=== PATIENT | male | born 1985 | race Caucasian/White ===

== ENCOUNTER 2018-02-03 11:01 | Emergency (ER) | payer SELFPAY ==
[~2018-02-03] VITALS: Ht 175.3 cm; Wt 99.8 kg
[2018-02-03] MEDS ORDERED: HYDROMORPHONE 1MG/1ML INJ IV STA (11:04)
[2018-02-03] MEDS ORDERED: SODIUM CHLORIDE 0.9% 1000ML 1,000 ML IV STA (11:04)
[2018-02-03] MEDS ORDERED: KETOROLAC TROMETHAMINE 30 MG/ML VIAL IV STA (11:04)
[2018-02-03] MEDS ORDERED: METOCLOPRAMIDE HCL 10 MG/2ML VIAL IV ONE (11:15)
[2018-02-03] MEDS ORDERED: HYDROMORPHONE 2MG/ML INJ IV ONE (11:30)
[2018-02-03 12:36] LABS: BASOPHILS # (AUTO) 0.1 (0.0-0.1); BASOPHILS % 0.7 % (0.0-1.0); EOSINOPHILS # (AUTO) 0.2 (0.0-0.4); EOSINOPHILS % 1.7 % (0.0-6.0); HEMATOCRIT 40.9 % (38.2-49.6); LYMPHOCYTES # (AUTO) 1.7 (1.0-3.2); LYMPHOCYTES % 19.8 % (18.0-39.1); MEAN CORPUSCULAR HEMOGLOBIN 29.2 pg (28-32); MEAN CORPUSCULAR HGB CONC 34.2 g/dL (31-35); MEAN CORPUSCULAR VOLUME 85.2 fL (81-99); MONOCYTES # (AUTO) 0.6 (0.2-0.8); MONOCYTES % 6.4 % (4.4-11.3); NEUTROPHILS # (AUTO) 6.1 (2.1-6.9); NEUTROPHILS % 71.2 % (38.7-80.0); PLATELET COUNT 417 x10e3/uL (140-360); RED CELL DISTRIBUTION WIDTH 12.7 % (11.7-14.4)
[2018-02-03 12:42] LABS: KETONES,URINE NEGATIVE (NEGATIVE); LEUKOCYTE ESTERASE ,URINE NEGATIVE (NEGATIVE); NITRITE,URINE NEGATIVE (NEGATIVE); PROTEIN,URINE DIPSTICK 1+ (NEGATIVE)
[2018-02-03 12:43] LABS: BILIRUBIN,URINE NEGATIVE (NEGATIVE); URINE UROBILINOGEN 0.2 mg/dL (0.2 - 1)
[2018-02-03 12:51] LABS: ALANINE AMINOTRANSFERASE 67 IU/L (0-55); ALBUMIN 4.4 g/dL (3.5-5.0); ALBUMIN/GLOBULIN RATIO 1.4 (0.8-2.0); ALKALINE PHOSPHATASE 116 IU/L (40-150); ANION GAP 11.2 mmol/L (8-16); BLOOD UREA NITROGEN 12 mg/dL (7-26); BUN/CREATININE RATIO 12 (6-25); CALCIUM 9.3 mg/dL (8.4-10.2); CARBON DIOXIDE 26 mmol/L (22-29); CHLORIDE 104 mmol/L (98-107); CREATININE, SERUM 1.02 mg/dL (0.72-1.25); EST GLOMERULAR FILTRATION RATE > 60 ML/MIN (60-); GLUCOSE 95 mg/dL (74-118); POTASSIUM 4.2 mmol/L (3.5-5.1); SODIUM 137 mmol/L (136-145)
--- NOTE | 2018-02-03 12:51 | Diagnostic Imaging Report ---
EXAM: CT Abdomen and Pelvis WITHOUT contrast INDICATION: \S\STONE PROTOCOL \S\[id number] \S\[id number] \S\Y COMPARISON: None. TECHNIQUE: Abdomen and pelvis were scanned utilizing a multidetector helical scanner from the lung base to the pubic symphysis without administration of IV contrast. Absence of intravenous contrast decreases sensitivity for detection of focal lesions and vascular pathology. Coronal and sagittal reformations were obtained. Routine protocol was performed. IV CONTRAST: None ORAL CONTRAST: Water COMPLICATIONS: None RADIATION DOSE: Total DLP: 799.5 mGy*cm Estimated effective dose: (DLP x 0.015 x size factor) mSv CTDIvol has been reviewed. It is below the limits set by the Radiation Protocol Committee (RPC). FINDINGS: LINES and TUBES: None. LOWER THORAX: Unremarkable HEPATOBILIARY: Low attenuating right hepatic 0.6 cm lesion is too small to characterize but likely a cyst. No biliary ductal dilation. GALLBLADDER: No radio-opaque stones or sludge. No wall thickening. SPLEEN: No splenomegaly. PANCREAS: No focal masses or ductal dilatation. ADRENALS: No adrenal nodules KIDNEYS/URETERS: Mild left hydronephrosis related to a 1.1 x 0.7 x 0.8 cm stone at the ureterovesicular junction. No cystic or solid mass lesions. Multiple nonobstructing stones measure up to 3 mm stones in the right kidney and 5 mm in the left kidney. GI TRACT: No abnormal distention, wall thickening, or evidence of bowel obstruction. Submucosal fat stomach, duodenum, and right colon. Appendix is normal. PELVIC ORGANS/BLADDER: Unremarkable. LYMPH NODES: No lymphadenopathy. VESSELS: Unremarkable. PERITONEUM / RETROPERITONEUM: No free air or fluid. A 1.5 cm partially calcified structure in the pelvis likely represents a torsed epiploic appendage. 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 SOFT TISSUES: Small fat-containing indirect right inguinal hernia. IMPRESSION: Left ureteropelvic junction 1.1 x 0.7 x 0.8 cm stone results in mild left hydronephrosis. Signed by: DR. Laron Penny MD on 02/03/2018 12:47 PM
[2018-02-03 12:54] LABS: CLARITY,URINE HAZY (CLEAR); COLOR,URINE YELLOW (YELLOW); EPITHELIAL CELLS,URINE FEW /LPF; MUCUS,URINE MODERATE (RARE); RBC,URINE >50 /HPF (0-5); WBC,URINE (MAN) 0-5 /HPF (0-5)
== END 2018-02-03 16:55 | disposition short-term general hospital (02) ==
LOC: ER 11:01
DX: N13.2 Hydronephrosis with renal and ureteral calculous obstruction (principal)
CPT/HCPCS: 99284; J1170; J1885; J2765; J7030

== ENCOUNTER 2019-03-30 05:27 | Emergency (ER) | payer SELFPAY ==
[~2019-03-30] VITALS: Ht 175.3 cm; Wt 99.8 kg
--- OUTSIDE RECORDS SUMMARY | 2019-03-30 05:30 | XMS REPORT | Clinical Summary ---
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 Active hyoscyamine (LEVSIN/SL) Place 1 60 tablet 0 0.125 mg sublingual tablet under 8 tabletIndications: tongue every Retained ureteral stent 4 hours as needed (bladder spasms). Active ibuprofen (MOTRIN) 400 mg Take 1 tablet 40 tablet 0 tabletIndications: Kidney by mouth 8 stone every 6 hours as needed for Pain. Active traMADol (ULTRAM) 50 mg 1 tab daily 30 tablet 0 tabletIndications: Renal prn Pain. 9 calculi Active hyoscyamine (LEVSIN/SL) Place 1 50 tablet 0 0.125 mg sublingual tablet under 9 tabletIndications: tongue every Retained ureteral stent 4 hours as needed for Cramping. 05/16/2018 Discontinued Atomoxetine (STRATTERA) Take 2 180 capsule 0 10 mg capsuleIndications: capsules by 3 ADHD (attention deficit mouth daily. hyperactivity disorder) 05/16/2018 Discontinued cefpodoxime (VANTIN) 200 Take 1 tablet 20 tablet 0 201 mg tabletIndications: by mouth 2 8 Complicated UTI (urinary times daily tract infection) for 10 days. 05/16/2018 Discontinued ibuprofen (MOTRIN) 800 mg Take 1 tablet 20 tablet 0 tabletIndications: Left by mouth 8 flank pain, Complicated every 6 hours UTI (urinary tract as needed for infection) Pain. 05/16/2018 Discontinued traMADol (ULTRAM) 50 mg Take 1 tablet 20 tablet 0 tabletIndications: Left by mouth 8 flank pain, Complicated every 6 hours UTI (urinary tract as needed for infection) Pain. 05/27/2018 Discontinued ibuprofen (MOTRIN) 800 mg Take 1 tablet 60 tablet 0 tabletIndications: Left by mouth 8 flank pain, Complicated every 6 hours UTI (urinary tract as needed for infection) Pain. 06/01/2018 cefpodoxime (VANTIN) 200 Take 1 tablet 20 tablet 0 mg tabletIndications: by mouth 2 8 Complicated UTI (urinary times daily tract infection) for 10 days. 09/11/2018 Discontinued traMADol (ULTRAM) 50 mg Take 1 tablet 60 tablet 0 tabletIndications: Flank by mouth 8 pain every 6 hours as needed for Pain. 07/13/2018 hyoscyamine (LEVSIN/SL) Place 1 30 tablet 0 0.125 mg sublingual tablet under 8 tabletIndications: tongue every Bladder spasm 4 hours as needed for up to 10 days for Cramping. 08/17/2018 amoxicillin (AMOXIL) 250 Take 1 15 capsule 0 mg capsuleIndications: capsule by 8 Complicated UTI (urinary mouth 3 times tract infection) daily for 5 days. 08/21/2018 Discontinued hyoscyamine (LEVSIN/SL) Place 1 30 tablet 0 0.125 mg sublingual tablet under 8 tabletIndications: tongue every Retained ureteral stent 4 hours as needed for up to 10 days for Cramping. 09/12/2018 Discontinued sulfamethoxazole-trimetho Take 1 tablet 20 tablet 0 prim (BACTRIM DS) 800-160 by mouth 2 9 mg per tabletIndications: times daily Folliculitis for 10 days. 09/12/2018 Discontinued traMADol (ULTRAM) 50 mg 1 tab daily 30 tablet 0 tabletIndications: Renal prn Pain. 9 calculi 09/25/2018 sulfamethoxazole-trimetho Take 1 tablet 20 tablet 0 prim (BACTRIM DS) 800-160 by mouth 2 9 mg per tabletIndications: times daily Folliculitis for 10 days. Status Hospital, Clinic, or Ordered Dose Route Frequency Start End Date Other Facility Date Administered Medication Ended ciprofloxacin HCl (CIPRO) 500 mg OR ONCE 10/09/19 tablet 500 mg 19 9 Ended povidone-iodine 1 Application TP ONCE 10/09/19 (BETADINE) 10 % topical 19 9 applicator 1 Application Ended lidocaine (GLYDO) 2 % 11 mL UR ONCE 10/09/19 jelly 11 mL 19 9 Active Problems Problem Noted Date Kidney stone 06/23/2018 Overview: Added automatically from request for surgery [id number] Left flank pain 05/08/2018 Complicated UTI (urinary tract infection) 05/08/2018 Retained ureteral stent 05/08/2018 ADHD (attention deficit hyperactivity disorder) 06/25/2012 Chest pain, unspecified 05/08/2012 Special screening for other specified conditions(V82.89) 05/08/2012 Hematuria Encounters Care Team Description Date Type Specialty Rachana Peterson MD Nephrolithiasis 11/03/2018 Hospital Lab Encounter Rachana Peterson MD 11/03/2018 Hospital Lab Encounter 11/03/2018 Travel Monique Goodrich LVN Follow-up (CYSTO WITH STENT REMOVAL) 10/13/2018 Telephone Urology Rachana Peterson MD Nephrolithiasis; Retained ureteral stent 10/09/2018 Hospital Radiology Encounter Chintan Maya MD McCarty, Melina J, MD Nephrolithiasis (Primary Dx); Retained ureteral stent 10/09/2018 Office Visit Urology Rachana Peterson MD Renal calculi (Primary Dx); Folliculitis; Encounter for vaccination; Diabetes mellitus screening 09/11/2018 Office Visit Family Practice 09/11/2018 Travel Rachana Peterson MD Flank pain 08/31/2018 Refill Family Practice Chintan Maya MD 08/21/2018 Hospital Radiology Encounter Chintan Maya MD Cystoscopy, URETEROSCOPY. Laser lithotripsy, Stent REMOVAL AND EXCHANGE 08/21/2018 Surgery General Surgery Tata Pettit NP 08/21/2018 Anesthesia General Surgery Event Chintan Maya MD Kidney stone (Primary Dx); Retained ureteral stent 08/21/2018 Hospital General Surgery Encounter Bryce Hawkins ResidentMD Results 08/20/2018 Telephone Urology Winnie Campbell, Tata Gandara NP 08/15/2018 Hospital Anesthesiology Encounter Bryce Hawkins ResidentMD Retained ureteral stent (Primary Dx) 08/15/2018 Orders Only Urology 08/15/2018 Travel Rachana Peterson MD Flank pain 08/11/2018 Refill Family Practice Bryce Hawkins ResidentMD Results 08/10/2018 Telephone Urology Rachana Peterson MD Complicated UTI (urinary tract infection); Retained ureteral stent 08/07/2018 Hospital Lab Encounter Tesha Rayo PA McCarty, Melina J, MD Flank pain (Primary Dx); Complicated UTI (urinary tract infection); Retained ureteral stent; Bladder spasm 06/23/2018 Office Visit Urology Left flank pain; Retained ureteral stent; Hematuria, unspecified type 06/06/2018 Emergency Emergency Medicine Rachana Peterson MD Tobacco abuse (Primary Dx); Left flank pain; Complicated UTI (urinary tract infection); Dietary counseling for Above / Below Normal BMI; Exercise counseling for Above Normal BMI Only! 05/16/2018 Office Visit Family Practice Brice Kingsley MD Complicated UTI (urinary tract infection); Left flank pain 05/14/2018 Refill Eb Hutchinson MD Left flank pain (Primary Dx); Complicated UTI (urinary tract infection); Retained ureteral stent; Kidney stone on left side 05/08/2018 Emergency Emergency Medicine after 03/29/2018 Immunizations Name Administration Dates Next Due Influenza Vaccine 06/24/2012 Influenza, 09/11/2018 Vaccine<FLUCELVAX>(Multi- Dose) Family History Relation Name Status Comments Brother Alive Father Alive Mother Alive Sister Alive Social History Date Tobacco Use Types Packs/Day Years Used Current Every Day Smoker Cigarettes Smokeless Tobacco: Never Used Tobacco Cessation: Ready to Quit: Yes; Counseling Given: Yes Comments: 1 pack every 2 days Drinks/Week oz/Week Comments Alcohol Use socially Yes Food Insecurity Answer Date Recorded Within the past 12 months, you worried that your Never true 09/11/2018 food would run out before you got money to buy more. Within the past 12 months, the food you bought Never true 09/11/2018 just didn't last and you didn't have money to get more. Sex Assigned at Date Recorded Not on file Industry Job Start Date Occupation Not on file Not on file Not on file Travel End Travel History Travel Start No recent travel history available. Last Filed Vital Signs Reading Time Taken Comments Vital Sign 118/65 10/09/2018 10:50 AM [facility]ATHER Blood Pressure 97 10/09/2018 10:50 AM [employer] LEATHER Pulse 36.6 C (97.9 F) 10/09/2018 10:50 AM [facility] LEATHER Temperature 18 10/09/2018 10:50 AM [facility] LEATHER Respiratory Rate 97% 09/11/2018 1:23 PM [facility] LEATHER Oxygen Saturation - - Inhaled Oxygen Concentration 95.3 kg (210 lb) 10/09/2018 10:50 AM [facility]ER LEATHER Weight 175.3 cm (5' 9") 10/09/2018 10:50 AM SPR[facility]ER LEATHER Height 31.01 10/09/2018 10:50 AM SPRAYER LEATHER Body Mass Index Plan of Treatment Not on file Implants Device Identifier Shelf Expiration Date Model / Serial / Lot Implanted Type Area Manufactur 01/26/2021 [id number] / / [id number] [employer] Ureteral Stent Stent Left: Ureter(s) Implanted: Qty: 1 on 08/21/2018 by Bryce Hawkins, [facility]MD [facility] Procedures Comments Procedure Name Priority Date/Time Associated Diagnosis INTACT PARATHYROID Routine 11/03/2018 Nephrolithiasis HORMONE (PTH) 10:55 AM SPR[facility]ER LEATHER URIC ACID Routine 11/03/2018 Nephrolithiasis 10:55 AM [facility]ER LEATHER VIT D, 25-HYDROXY Routine 11/03/2018 Nephrolithiasis 10:55 AM [employer]ER LEATHER BASIC METABOLIC PANEL Routine 11/03/2018 Nephrolithiasis 10:55 AM [employer] LEATHER KIDNEY STONE, UR/SAT Routine 11/03/2018 Nephrolithiasis 10:00 AM [employer]ER LEATHER XRAY ABDOMEN 1 VIEW Routine 10/09/2018 Nephrolithiasis 12:27 PM [employer]ER LEATHER Retained ureteral stent HEMOGLOBIN A1C Routine 2018 Diabetes mellitus 10:02 AM SPRAYER LEATHER screening [id number] Routine 08/21/2018 11:20 AM SPR[facility]ER LEATHER Procedure Note - Diane Bates CRNA - 08/21/2018 11:20 AM SPR[facility]ER LEATHER Intubation Date/Time: 08/21/2018 11:00 AM Urgency: elective Airway not difficult General Informatio n and Staff Patient location during procedure: OR Anesthesio logist: Luci Dahl MD Resident/C RNA: Diane Bates CRNA Performed: resident/C RNA Indicatio ns and Patient Condition Indication s for airway management : anesthesia Preoxygena florentin: yes Patient position: sniffing Mask difficulty assessment : 2 - vent by mask + OA or adjuvant +/- NMBA Final Airway Details Final airway type: endotrache al airway Successful airway: ETT Cuffed: yes Successful intubation technique: direct Facilitati ng devices/me thods: intubating stylet Endotrache al tube insertion site: oral Blade: Lauri Blade size: #3 Cords visualized : grade 1 Placement verified by: chest auscultati on and capnometry Measured from: lips ETT to lips (cm): 24 Number of attempts at approach: 1 URETEROSCOPY 08/21/2018 Kidney stone 10:49 AM SPR[facility]ER LEATHER BMP POC Routine 08/15/2018 10:20 AM SPRAYER LEATHER 12 LEAD EKG STAT 08/15/2018 9:26 AM [facility]ER LEATHER CBC/DIFF STAT 08/15/2018 9:22 AM [facility]ER LEATHER BASIC METABOLIC PANEL STAT 08/15/2018 9:22 AM [facility]ER LEATHER URINE CULTURE Routine 08/07/2018 Complicated UTI (urinary 8:07 AM SPR[facility]ER LEATHER tract infection) Retained ureteral stent URINE CULTURE Routine 06/23/2018 Complicated UTI (urinary 8:45 AM CDT tract infection) Retained ureteral stent BMP POC Routine 06/06/2018 6:23 PM CDT HIV-1/HIV-2 ROUTINE STAT 06/06/2018 SCREENING 5:58 PM CDT URINALYSIS STAT 06/06/2018 5:58 PM CDT LIPASE STAT 06/06/2018 5:58 PM CDT LIVER PROFILE STAT 06/06/2018 5:58 PM CDT CBC/DIFF STAT 06/06/2018 5:58 PM CDT COMPUTED TOMOGRAPHY STAT 05/08/2018 Left flank pain ABDOMEN AND PELVIS 11:44 AM CDT WITHOUT CONTRAST BMP POC Routine 05/08/2018 11:43 AM CDT URINE CULTURE Routine 05/08/2018 11:35 AM CDT URINALYSIS STAT 05/08/2018 11:35 AM CDT BEDSIDE ULTRASOUND Routine 05/08/2018 Left flank pain 10:39 AM CDT after 03/29/2018 Results * VIT D, 25-HYDROXY (11/03/2018 10:55 AM [facility] LEATHER) Vit D, 17.4 (L) 30 - 100 ng/mL [facility] 25-Hydroxy Comment: IMMUNOLOGY Vitamin D deficiency has been defined by the [place] of [employer] and Endocrine Society guideline as a level of serum 25-OH Vitamin D less than 20 ng/mL. The Endocrine Society further defines Vitamin D insufficiency as a level between 21 and 29 ng/mL and sufficiency as a level between 30 and 100 ng/mL. Specimen Performing Organization Address [facility]/Zipcode Phone Number [facility] DIAGNOSTIC IMMUNOLOGY * INTACT PTH (11/03/2018 10:55 AM SPRAYER LEATHER) Intact PTH 37.60 8.7 - 77.1 pg/mL [facility] 4 Specimen Blood Performing Organization Address City/[facility]/Zipcode Phone Number MISYS [facility] 4 * URIC ACID (11/03/2018 10:55 AM SPR[facility] LEATHER) Uric acid 6.4 4.4 - 7.6 mg/dL [facility] 1 Specimen Blood Performing Organization Address City/[facility] Phone Number [facility] 1 * BASIC METABOLIC PANEL (11/03/2018 10:55 AM SPRAYER LEATHER) Only the most recent of 2 results within the time period is included. CO2 29 21 - 31 mmol/L [facility] 1 Chloride 108 (H) 98 - 107 mmol/L [facility] 1 Potassium 4.4 3.5 - 5.1 mmol/L [facility] 1 Sodium 140 136 - 145 mmol/L [facility] 1 Glucose 99 70 - 110 mg/dL [facility] 1 BUN 14 7 - 25 mg/dL [facility] 1 Creatinine 1.00 0.7 - 1.3 mg/dL [facility] 1 Anion Gap 3 [facility] 1 Calcium 9.5 8.6 - 10.3 mg/dL [facility] 1 GFR, Estimated >60 mL/min/1.73 m2 [facility] 1 eGFR If Africn >60 mL/min/1.73 m2 [facility] Am MAIN-STATION 1 Specimen Blood Performing Organization Address City/State/Zipcode Phone Number MISYS [facility] 1 * KIDNEY STONE, UR/SAT (11/03/2018 10:00 AM SPR[facility]ER LEATHER) Urin Vol No 1750 LABORATORY Preser Reference range: 800 to 1800 [facility]POR[facility] OF Unit: mL/24 hr [facility] Urin Vol Preser 1750 LABORATORY Reference range: 800 to 1800 [facility]POR[facility] OF Unit: mL/24 hr [facility] Calcium, Urine 10.9 LABORATORY Reference range: Not Estab. [facility]POR[facility] OF Unit: mg/dL [facility] Calcium 24 Hr 190.8 LABORATORY Reference range: 100.0 to CORPORATION OF 300.0 [facility] Unit: mg/24 hr Sodium, Urine 129 LABORATORY Reference range: Not Estab. [facility]POR[facility] OF Unit: mmol/L [facility] Sodium 24 Hr 226 LABORATORY Reference range: 58 to 337 [facility] OF Unit: mmol/24 hr [facility] Phosphorus, Ur 44.5 LABORATORY Reference range: Not Estab. [facility]POR[facility] OF Unit: mg/dL [facility] Phosphorus 24 778.8 LABORATORY Hr Reference range: 400.0 to CORPORATION OF 1300.0 [facility] Unit: mg/24 hr Uric Acid, Ur 30.6 LABORATORY Reference range: Not Estab. [facility]POR[facility] OF Unit: mg/dL [facility] Uric Acid, 24 536 LABORATORY Hr Reference range: 250 to 750 [facility] OF Unit: mg/24 hr [facility] Potassium, Ur 31.8 LABORATORY Reference range: Not Estab. [facility]POR[facility] OF Unit: mmol/L [facility] Potassium Ur 24 55.7 LABORATORY Hr Reference range: 25.0 to 125.0 [facility] OF Unit: mmol/24 hr [facility] Chloride, Ur 109 LABORATORY Reference range: Not Estab. [facility]POR[facility] OF Unit: mmol/L [facility] Chloride Ur 24 191 LABORATORY Hr Reference range: 110 to 250 [facility]POR[facility] OF Unit: mmol/24 hr [facility] Citric Acid 139 LABORATORY Reference range: Not Estab. [facility]POR[facility] OF Unit: mg/L [facility] Citric Acid 24 243 LABORATORY Hr Reference range: 320 to 1240 [facility]POR[facility] OF Unit: mg/24 hr [facility] (L) Oxalates, Ur 13 LABORATORY Reference range: Not Estab. [facility]POR[facility] OF Unit: mg/L [facility] Oxalates Ur 24 23 LABORATORY Hr Reference range: 7 to 44 [facility]POR[facility] OF Unit: mg/24 hr [facility] Magnesium, Ur 3.6 LABORATORY Reference range: Not Estab. [facility]POR[facility] OF Unit: mg/dL [facility] Magnesium Ur 24 63 LABORATORY Hr Reference range: 12 to 293 [facility] OF Unit: mg/24 hr [facility] Sulfate, Ur 14 LABORATORY Reference range: Not Estab. [facility]POR[facility] OF Unit: mEq/L [facility] Sulfate Ur 24 25 LABORATORY Hr Reference range: 0 to 30 [facility] OF Unit: mEq/24 hr [facility] Osmolality, Ur 506 LABORATORY Reference range: 300 to 900 [facility]POR[facility] OF Unit: mOsmol/kg [facility] Creatinine, Ur 95.0 LABORATORY Reference range: Not Estab. [facility]POR[facility] OF Unit: mg/dL [facility] Creat Ur 24 Hr 1662.5 LABORATORY Reference range: 1000.0 to CORPORATION OF 2000.0 [facility] Unit: mg/24 hr pH, 24 Hr Ur 6.6 LABORATORY [place] [address] LABORATORY Reference range: Not Estab. [facility]POR[facility] OF Unit: ug/dL [facility] Ammonia, Ur 24 28 LABORATORY Hr Reference range: Not Estab. [facility]POR[facility] OF Unit: mEq/24 hr [facility] Calcium Oxalate 4.28 LABORATORY Reference range: 0.00 to 6.00 [facility] OF Unit: ratio [facility] Brushite 2.82 LABORATORY Reference range: 0.00 to 3.00 [facility] OF Unit: ratio [facility] Monosodium 4.66 LABORATORY Urate Reference range: 0.00 to 4.00 [facility] OF Unit: ratio [facility] (H) Uric Acid 0.36 LABORATORY Reference range: 0.00 to 1.20 [facility]POR[facility] OF Unit: ratio [facility] Struvite 0.08 LABORATORY Reference range: 0.00 to 1.00 [facility] OF Unit: ratio [facility] Please note: Comment LABORATORY (note) [facility]POR[facility] OF Graphic analysis of results [facility] will follow via computer, mail, or plain goods hemmer delivery. Cystine, U 5.13 LABORATORY Reference range: Not Estab. [facility]POR[facility] OF Unit: mg/L [facility] Cystine, 24U 8.98 LABORATORY Reference range: 10.00 to CORPORATION OF 100.00 [facility] Unit: mg/24 hr (L) Specimen Urine Performing Organization Address City/State/Zipcode Phone Number CECIL RIVERA OF [address] [facility], [place] [address] [facility] 145 * XRAY ABDOMEN 1 VIEW (10/09/2018 12:27 PM SPRAYER LEATHER) Specimen Impressions Performed At IMPRESSION: SMS Questionable residual tiny stone in the left ureter immediately above the L4 left transverse process, as labeled on the image. This [facility] radiology report is a preliminary resident dictation until finalized by an attending.Changes to this preliminary report may occur in an additional preliminary or finalized version. Dictated By: Emperatriz Xiao MD, 10/09/2018 2:52 PM I have reviewed the study and agree with the findings in this report. Signed By: Cira Shoko MD, 10/09/2018 2:57 PM Narrative Performed At EXAM: XR ABDOMEN 1 VIEW [facility] DATE: 10/09/2018 12:35 PM INDICATION: nephrolithiasis. Nephrolithiasis ADDITIONAL INFORMATION: post ESWL COMPARISON: CT abdomen and pelvis 05/08/2018 TECHNIQUE:AP view of the abdomen. FINDINGS: A 2J nephroureterostomy tube is present on the left. There is no stent encrustation. There is a questionable residual stone in the left ureter immediately above the L4 left transverse process. Phleboliths are noted in the lower pelvis, as previously. No acute bony abnormality. A lumbosacral transitional vertebrae is present which may be due to accessory intersacral joints , transitional lumbosacral vertebra (Bertolotti's syndrome). No organomegaly, masses, ascites is present. Gas is present within the small bowel loops with no evidence of obstruction. No fecal burden is noted. The visualized lower thorax is unremarkable. Procedure Note Interface, Rad/Mammog In - 10/09/2018 3:03 PM SPR[facility]ER LEATHER EXAM: XR ABDOMEN 1 VIEW DATE: 10/09/2018 12:35 PM INDICATION: nephrolithiasis. Nephrolithiasis ADDITIONAL INFORMATION: post ESWL COMPARISON: CT abdomen and pelvis 05/08/2018 TECHNIQUE: AP view of the abdomen. FINDINGS: A 2J nephroureterostomy tube is present on the left. There is no stent encrustation. There is a questionable residual stone in the left ureter immediately above the L4 left transverse process. Phleboliths are noted in the lower pelvis, as previously. No acute bony abnormality. A lumbosacral transitional vertebrae is present which may be due to accessory intersacral joints , transitional lumbosacral vertebra (Bertolotti's syndrome). No organomegaly, masses, ascites is present. Gas is present within the small bowel loops with no evidence of obstruction. No fecal burden is noted. The visualized lower thorax is unremarkable. IMPRESSION IMPRESSION: Questionable residual tiny stone in the left ureter immediately above the L4 left transverse process, as labeled on the image. This [facility] radiology report is a preliminary resident dictation until finalized by an attending. Changes to this preliminary report may occur in an additional preliminary or finalized version. Dictated By: Emperatriz Xiao MD, 10/09/2018 2:52 PM I have reviewed the study and agree with the findings in this report. Signed By: Cira Shook MD, 10/09/2018 2:57 PM Performing Organization Address City/State/Zipcode Phone Number SMS * HEMOGLOBIN A1C (2018 10:02 AM [facility]ER LEATHER) Hemoglobin A1c 5.8 4.3 - 6.1 % [facility] IMMUNOLOGY Est Average 119.8 mg/dL [facility] Gluc IMMUNOLOGY Specimen Blood Performing Organization Address City/[facility] Phone Number [facility] I[facility] * BMP POC (08/15/2018 10:20 AM [facility]ER LEATHER) Only the most recent of 3 results within the time period is included. CO2 POC 25 21 - 32 mmol/L [facility] 1 Chloride POC 105 98 - 107 mmol/L [facility] 1 Potassium POC 4.0 3.50 - 5.10 mmol/L [facility] 1 Sodium POC 142 136 - 145 mmol/L [facility] 1 Glucose POC 80 74 - 106 mg/dL [facility] 1 Urea Nitrogen 13 7 - 18 mg/dL [facility] POC [facility]IN[facility]STATION 1 Creatinine POC 0.8 0.6 - 1.3 mg/dL [facility] 1 Calcium Ionized 1.18 1.15 - 1.29 mmol/L [facility] POC [facility] 1 Hemoglobin POC 14.3 14.0 - 18.0 g/dL [facility] 1 Hematocrit POC 42.0 40.0 - 54.0 % [facility] 1 GFR, Estimated >60 mL/min/1.73 m2 [facility] 1 GFR, Estim, >60 mL/min/1.73 m2 [facility] Afr-Am [facility]IN-STATION 1 Specimen Performing Organization Address [facility] Phone Number MISYS [facility]IN-STATION 1 * 12 LEAD EKG (08/15/2018 9:26 AM SPRAYER LEATHER) 12 LEAD EKG FOR [facility] Esteban Tapia [facility] Test Date:2018-08-15 Pat Name: DANDY VALENCIA JR Department: [id number] Room: Gender: M Disability Aide: :09-15 Requested By: TATA Greene Order Number: [id number] Reading MD: Eb CUELLAR Measurements Intervals [place] Rate: 93 P:57 OK: 161 QRS: -53 QRSD: 126 T: 43 QT: 352 QTc:440 Interpretive Statements SINUS RHYTHM RIGHT BUNDLE BRANCH BLOCK LEFT ANTERIOR FASCICULAR BLOCK Poor anterior R wave cannot r/o prior Anteroseptal Infarct Abnormal ECG Electronically Signed On 08-15-2018 11:30:55 SPR[facility]ER LEATHER by Eb CUELLAR Specimen Performing Organization Address [facility] Phone Number SMS * CBC/DIFF (08/15/2018 9:22 AM SPR[facility]ER LEATHER) Only the most recent of 2 results within the time period is included. WBC 7.4 4.5 - 12.0 K/uL [facility] 2 RBC 4.86 4.60 - 6.20 M/uL [facility] 2 Hemoglobin 14.0 14.0 - 18.0 g/dL [facility] 2 Hematocrit 41.9 40.0 - 54.0 % [facility] 2 MCV 86 82 - 92 fL [facility] 2 MCH 28.8 27.0 - 31.0 pg [facility] 2 MCHC 33.4 32.0 - 36.0 g/dL [facility] 2 RDW 40.9 35.1 - 43.9 fL [facility] 2 Platelets 398 150 - 400 K/uL [facility] 2 Mean Platelet 9.0 (L) 9.4 - 12.4 fL [facility] Volume [facility]IN[facility] 2 Percent NRBC 0.0 [facility] 2 Absolute NRBC 0.00 [facility] 2 Neutrophils 52.8 34.0 - 67.9 % [facility] 2 Lymphs 33.3 21.8 - 50.0 % [facility] 2 Monocytes 7.9 5.3 - 12.0 % [facility] 2 Eos 4.9 0.8 - 5.0 % [facility] 2 Basos 0.8 0.2 - 1.2 % [facility] 2 Immature 0.3 0.0 - 0.5 [facility] Granulocytes [facility] 2 Neutrophils 3.89 1.78 - 5.36 K/uL [facility] (Absolute) [facility] 2 Lymphs 2.45 1.32 - 3.57 K/uL [facility] (Absolute) [facility] 2 Monocytes(Absol 0.58 0.30 - 0.82 K/uL [facility] shaniqua) MA[facility] 2 Eos (Absolute) 0.36 0.04 - 0.54 K/uL [facility] 2 Baso (Absolute) 0.06 0.01 - 0.08 K/uL [facility] 2 Immature Grans 0.02 0.00 - 0.03 K/uL [facility] (Abs) [facility] 2 Specimen Blood Performing Organization Address [facility] Phone Number MISYS [facility] 2 * URINE CULTURE (08/07/2018 8:07 AM SPRAYER LEATHER) Only the most recent of 3 results within the time period is included. Spec Clean catch urine [facility] Description MICROBIOLOGY Order Comments None [facility] MICROBIOLOGY Culture 10,000-100,000 CFU/ml [facility] MICROBIOLOGY Streptococcus beta hemolytic, group B Mixed uro-genital jah also present Report Status Final 08/08/2018 [facility] MICROBIOLOGY Specimen Urine clean catch - Clean Catch Mid Stream Performing Organization Address [facility] Phone Number M[facility]YS [facility] MICROBIOLOGY BT MICROBIOLOGY * HIV-1/HIV-2 ROUTINE SCREENING (06/06/2018 5:58 PM CDT) HIV-1/HIV-2 Negative NEG BT MAIN-STATION 3 Specimen Performing Organization Address [facility] Phone Number MISYS [facility] 3 * UA CHEMISTRIES (06/06/2018 5:58 PM CDT) Only the most recent of 2 results within the time period is included. Color Yellow BT MAIN-STATION 3 Clarity Clear BT MAIN-STATION 3 Specific 1.020 1.001 - 1.035 BT MAIN-STATION [place] 3 pH 6.0 5 - 8 BT MAIN-STATION 3 Protein 2+ (A) NEG BT MAIN-STATION 3 Glucose Negative NEG BT [facility]IN[facility] 3 Ketones Negative NEG BT [facility]IN-STATION 3 Bilirubin Negative NEG BT MAIN-STATION 3 Nitrate Negative NEG BT MAIN-STATION 3 Urobilinogen,Se <1.0 0.2 - 1.0 EU/dL BT MAIN-STATION mi-Qn 3 Leukocyte 2+ (A) NEG BT MAIN-STATION 3 Occult Blood 3+ (A) NEG BT MAIN-STATION 3 RBC >182 (H) 0 - 4 /HPF BT MAIN-STATION 3 WBC 23 (H) 0 - 5 /HPF BT MAIN-STATION 3 Mucous Present BT MAIN-STATION 3 Sperm Present BT MAIN-STATION 3 Specimen Urine Performing Organization Address [facility] Phone Number MISYS BT MAIN-STATION 3 * LIVER PROFILE (06/06/2018 5:58 PM CDT) Protein, Total, 6.7 6.0 - 8.3 g/dL BT MAIN-STATION Serum 1 Albumin 4.4 4.2 - 5.5 g/dL BT MAIN-STATION 1 Bilirubin, 0.2 0.2 - 1.2 mg/dL BT MAIN-STATION Total 1 Alkaline 101 34 - 104 U/L BT MAIN-STATION Phosphatase, S 1 AST (SGOT) 23 13 - 39 U/L BT MAIN-STATION 1 ALT 41 7 - 52 U/L BT MAIN-STATION 1 D Bilirubin 0.1 0.0 - 0.2 mg/dL BT MAIN-STATION 1 Specimen Blood Performing Organization Address [facility] Phone Number MISYS BT MAIN-STATION 1 * LIPASE (06/06/2018 5:58 PM CDT) Lipase 27 11 - 82 U/L BT MAIN-STATION 1 Specimen Blood Performing Organization Address [facility] Phone Number MISYS BT MAIN-STATION 1 * COMPUTED TOMOGRAPHY ABDOMEN AND PELVIS WITHOUT CONTRAST (05/08/2018 11:44 AM CDT) Specimen Impressions Performed At IMPRESSION: SMS 1.Left double-J ureteric stent in place with the 6 x 4 mm calculus within the proximal left ureter causing mild hydroureteronephrosis. Mild thickening of the left ureter along with mild periureteric fat stranding is present. Recommend correlation with urinalysis for possibility of underlying infection. 2.Nonobstructive small bilateral renal calculi Signed By: Levon Rhoades MD, 05/08/2018 12:29 PM Narrative Performed At EXAM: CT ABDOMEN AND PELVIS WITHOUT CONTRAST SMS DATE: 05/08/2018 11:44 AM INDICATION: L flank pain, h/o kidney stones/stent in place ADDITIONAL INFORMATION: None. COMPARISON: None. TECHNIQUE: Volumetric CT acquisition of the abdomen and pelvis without intravenous contrast. Axial, coronal and sagittal reconstructions. IV contrast: None. Enteric contrast: None. DLP: 567.34 mGy-cm FINDINGS: Lines, tubes and hardware: None. Lower thorax: Mild bilateral dependent atelectasis, left greater than right. No pleural effusions or basilar pneumothorax. Liver: Normal. Biliary tree: No intra- or extrahepatic biliary ductal dilation. Gallbladder: Normal. No CT evidence of gallstones. Pancreas: Normal. Spleen: Normal. Note made of small splenules. Adrenals: Normal. Kidneys and ureters: A double-J left ureteric stent is visualized with its proximal end within the left renal pelvis and its distal end within the urinary bladder. A 6 x 4 mm calculus is noted within the proximal left ureter along the stent causing mild hydroureteronephrosis. No encrustations. Mild left periureteral fat stranding is present along with mild thickening of the ureter. Punctate nonobstructive calculi are noted within the left lower pole region measuring about 2 mm in size. Tiny 2 mm nonobstructive calculi are also noted along the interpolar region and lower pole of right kidney. No hydronephrosis on the right. Right ureter is not dilated. Bladder: Partially distended and is normal. Lower end of double-J ureteric extent is noted within the urinary bladder. Reproductive organs: No CT abnormality. Gastrointestinal tract: Normal caliber. Appendix: Normal. Peritoneum, mesentery and retroperitoneum: Normal. No free air, ascites or loculated fluid. Lymph nodes: Normal. Vasculature: Normal. Bones: No acute abnormality. Soft tissues: Normal. Procedure Note Interface, Rad/Mammog In - 05/08/2018 12:34 PM CDT EXAM: CT ABDOMEN AND PELVIS WITHOUT CONTRAST DATE: 05/08/2018 11:44 AM INDICATION: L flank pain, h/o kidney stones/stent in place ADDITIONAL INFORMATION: None. COMPARISON: None. TECHNIQUE: Volumetric CT acquisition of the abdomen and pelvis without intravenous contrast. Axial, coronal and sagittal reconstructions. IV contrast: None. Enteric contrast: None. DLP: 567.34 mGy-cm FINDINGS: Lines, tubes and hardware: None. Lower thorax: Mild bilateral dependent atelectasis, left greater than right. No pleural effusions or basilar pneumothorax. Liver: Normal. Biliary tree: No intra- or extrahepatic biliary ductal dilation. Gallbladder: Normal. No CT evidence of gallstones. Pancreas: Normal. Spleen: Normal. Note made of small splenules. Adrenals: Normal. Kidneys and ureters: A double-J left ureteric stent is visualized with its proximal end within the left renal pelvis and its distal end within the urinary bladder. A 6 x 4 mm calculus is noted within the proximal left ureter along the stent causing mild hydroureteronephrosis. No encrustations. Mild left periureteral fat stranding is present along with mild thickening of the ureter. Punctate nonobstructive calculi are noted within the left lower pole region measuring about 2 mm in size. Tiny 2 mm nonobstructive calculi are also noted along the interpolar region and lower pole of right kidney. No hydronephrosis on the right. Right ureter is not dilated. Bladder: Partially distended and is normal. Lower end of double-J ureteric extent is noted within the urinary bladder. Reproductive organs: No CT abnormality. Gastrointestinal tract: Normal caliber. Appendix: Normal. Peritoneum, mesentery and retroperitoneum: Normal. No free air, ascites or loculated fluid. Lymph nodes: Normal. Vasculature: Normal. Bones: No acute abnormality. Soft tissues: Normal. IMPRESSION IMPRESSION: 1. Left double-J ureteric stent in place with the 6 x 4 mm calculus within the proximal left ureter causing mild hydroureteronephrosis. Mild thickening of the left ureter along with mild periureteric fat stranding is present. Recommend correlation with urinalysis for possibility of underlying infection. 2. Nonobstructive small bilateral renal calculi Signed By: Levon Rhoades MD, 05/08/2018 12:29 PM Performing Organization Address City/State/[facility] Phone Number SMS * BEDSIDE ULTRASOUND (05/08/2018 10:39 AM CDT) Narrative Performed At Tesha Rayo PA 05/08/20181:42 PM Bedside Ultrasound Date/Time: 05/08/2018 11:02 AM Performed by: TESHA RAYO Authorized by: TESHA RAYO Consent: Consent obtained:Verbal Consent given by:Patient Risks discussed:Pain Alternatives discussed:No treatment, delayed treatment, alternative treatment, observation and referral Indications: Indications:L flank pain Anesthesia (see MAR for exact dosages): Anesthesia method:None Post-procedure details: Patient tolerance of procedure:Tolerated well, no immediate complications Comments: Bedside Kidney/Bladder scan. Indication - L flank pain. Axial and longitudinal view obtained of bilateral kidneys and bladder. + L sided hydronephrosis (?old vs new). No hydroureter appreciated. No perinephric fluid collections. No stones appreciated. Ureteral jets not visualized bilaterally. Performed and interpreted by me. Images saved and archived. after 03/29/2018
--- OUTSIDE RECORDS SUMMARY | 2019-03-30 05:31 | XMS REPORT | Clinical Summary ---
Author Author LEONARDO [facility] Address Unknown Phone Unavailable Care Team Providers Care Pulmonary Function Technician Name Role Phone Sharpless PCP Allergies No Known Allergies Medications End Date Status Medication Sig Dispensed Refills Start Date Active tamsulosin (FLOMAX) 0.4 Take 1 30 capsule 1 //201 mg Cp24 24 hr capsule capsule (0.4 8 mg total) by mouth daily. Active traMADol (ULTRAM) 50 mg Take 1 tablet 30 tablet 0 02/04/201 tablet (50 mg total) 8 by mouth every 6 (six) hours as needed for Pain. Max Daily Amount: 200 mg Active Problems Problem Noted Date Nephrolithiasis 02/03/2018 Tobacco abuse 02/03/2018 Family History Medical History Relation Name Comments Learning disabilities Father Unremarkable Mother Relation Name Status Comments Father Mother Social History Date Tobacco Use Types Packs/Day Years Used Current Every Day Smoker Cigarettes 0.5 13 Smokeless Tobacco: Current User Tobacco Cessation: Ready to Quit: Yes; Counseling Given: Yes Alcohol Use Drinks/Week oz/Week Comments Yes 2 Cans of 1.2 Social drinker beer Sex Assigned at Date Recorded Not on file Industry Job Start Date Occupation Not on file Not on file Not on file Travel End Travel History Travel Start No recent travel history available. 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
--- OUTSIDE RECORDS SUMMARY | 2019-03-30 05:31 | XMS REPORT ---
Author Author [facility] Address Unknown Phone Unavailable Care Team Providers Care Washing Tub Operator Name Role Phone Sharon RIGGS Unavailable Unavailable Ulysses FULTON Unavailable Unavailable Problems This patient has no known problems. Allergies, Adverse Reactions, Alerts This patient has no known allergies or adverse reactions. Medications This patient has no known medications. Encounters Start Date/Time End Date/Time Encounter Type Admission Type Attending [facility] Facility Care Department Encounter ID 2018-11-11 00:00:00 2018-11-11 00:00:00 Outpatient [facility] [id number] 2018-11-03 10:42:49 2018-11-03 10:42:49 Outpatient [facility] [id number] 2018-11-03 10:42:37 2018-11-03 10:42:37 Outpatient [facility] [id number] 2018-10-14 00:00:00 2018-10-14 00:00:00 Outpatient [facility] [id number] 2018-10-09 12:15:37 2018-10-09 12:15:37 Outpatient [facility] [id number] 2018-10-09 10:50:01 2018-10-09 10:50:01 Outpatient [facility] [id number] 2018-09-30 00:00:00 2018-09-30 00:00:00 Outpatient [facility] [id number] 2018-09-22 00:00:00 2018-09-22 00:00:00 Outpatient [facility] [id number] 2018 10:06:03 2018 10:06:03 Outpatient [facility] [id number] 2018-09-11 13:16:08 2018-09-11 13:16:08 Outpatient [facility] [id number] 2018-08-21 13:30:35 2018-08-21 13:30:35 Outpatient [facility] [id number] 2018-08-21 07:07:00 2018-08-21 07:07:00 Outpatient [facility] [id number] 2018-08-21 00:00:00 2018-08-21 00:00:00 Outpatient [facility] [id number] 2018-08-15 08:44:18 2018-08-15 08:44:18 Outpatient [facility] [id number] 2018-08-15 00:00:00 2018-08-15 00:00:00 Outpatient [facility] [id number] 2018-08-07 08:09:59 2018-08-07 08:09:59 Outpatient [facility] [id number] 2018-06-23 07:43:16 2018-06-23 07:43:16 Outpatient [facility] [id number] 2018-06-06 16:35:00 2018-06-06 16:35:00 Emergency [facility] [id number] 2018-05-16 08:33:31 2018-05-16 08:33:31 Outpatient [facility] [id number] 2018-05-08 11:23:29 2018-05-08 11:23:29 Emergency [facility] [id number] 2018-05-08 10:20:26 2018-05-08 10:20:26 Emergency [facility] [id number] Results Test Description Test Time Test Comments Text Results Atomic Results Result Comments AFB CULTURE + SMEAR 2018-03-27 08:22:00 CULTURE (BEAKER) (test vaun=0460) No acid-fast bacilli isolated in 42 days AFB SMEAR (BEAKER) (test qvub=054) No partially acid fast bacilli seen AFB SMEAR (BEAKER) (test lfod=6348) No acid fast bacilli seen FUNGUS CULTURE + [id number] 15:28:00* Test Item Value Reference Range Comments CULTURE (BEAKER) (test qnoa=0882) No fungus isolated in 28 days FUNGUS SMEAR (BEAKER) (test gpeo=0801) No fungi seen ANAEROBIC [id number] 07:26:00* Test Item Value Reference Range Comments CULTURE (BEAKER) (test yimd=5456) No anaerobes isolated SURGICALLY OBTAINED CULTURE + GRAM [id number] 10:30:00* Test Item Value Reference Range Comments CULTURE (BEAKER) (test rhzb=4989) No growth GRAM STAIN RESULT (BEAKER) (test fsxu=5774) <1+ WBCs GRAM STAIN RESULT (BEAKER) (test kvpk=78883) No organisms seen [place], 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 Gonzales, as an intra-procedure imaging consultation was not requested. Reported fluoroscopy time: 0.42 minutes. Signed: Theodore Collado Verified Date/Time: 02/06/2018 08:12:01 Reading Location: [facility] C013V Neuro Reading Room E [id number] 11:43:00* Test Item Value Reference Range Comments CULTURE (BEAKER) (test xsgp=7736) 40-49,000 col/mL skin jah URINALYSIS W/ [id number] 08:04:00* Test Item Value Reference Range Comments COLOR (BEAKER) (test qrbx=698) Light Yellow CLARITY (BEAKER) (test hfqn=473) Clear SPECIFIC GRAVITY UA (BEAKER) (test vabp=734) 1.005 1.001-1.035 PH UA (BEAKER) (test vuak=440) 6.0 5.0-8.0 PROTEIN UA (BEAKER) (test mqbm=085) Negative Negative GLUCOSE UA (BEAKER) (test jfwz=188) Negative Negative KETONES UA (BEAKER) (test aail=433) Negative Negative BILIRUBIN UA (BEAKER) (test scie=942) Negative Negative BLOOD UA (BEAKER) (test cmmy=564) Small Negative NITRITE UA (BEAKER) (test envj=322) Negative Negative LEUKOCYTE ESTERASE UA (BEAKER) (test pehf=836) Negative Negative UROBILINOGEN UA (BEAKER) (test mhtj=817) 0.2 mg/dL 0.2-1.0 RBC UA (BEAKER) (test vcmx=332) < /HPF WBC UA (BEAKER) (test aimq=562) 2 /HPF MUCUS (BEAKER) (test tkor=0655) Rare SQUAMOUS EPITHELIAL (BEAKER) (test oklb=100) < /HPF SOURCE(BEAKER) (test fxpr=0147) Urine, Voided BASIC METABOLIC [id number] 07:04:00* Test Item Value Reference Range Comments SODIUM (BEAKER) (test cbrj=809) 140 meq/L 136-145 POTASSIUM (BEAKER) (test jhyq=373) 4.4 meq/L 3.5-5.1 CHLORIDE (BEAKER) (test ctzy=363) 110 meq/L 98-107 CO2 (BEAKER) (test scyp=257) 24 meq/L 22-29 BLOOD UREA NITROGEN (BEAKER) (test ixdy=535) 13 mg/dL 7-21 CREATININE (BEAKER) (test csrt=914) 0.95 mg/dL 0.57-1.25 GLUCOSE RANDOM (BEAKER) (test tgbl=228) 89 mg/dL 70-105 CALCIUM (BEAKER) (test elcd=475) 8.6 mg/dL 8.4-10.2 EGFR (BEAKER) (test hlix=6904) 92 mL/min/1.73 sq m ESTIMATED GFR IS NOT ACCURATE CREATININE CLEARANCE IN PREDICTING GLOMERULAR FILTRATION RATE. ESTIMATED GFR IS NOT APPLICABLE FOR DIALYSIS PATIENTS. PT/[id number] 06:45:00* Test Item Value Reference Range Comments PROTIME (BEAKER) (test kvku=828) 14.1 seconds 11.7-14.7 INR (BEAKER) (test dyes=362) 1.1 <=5.9 PARTIAL THROMBOPLASTIN TIME (BEAKER) (test iiph=063) 37.6 seconds 22.5-36.0 RECOMMENDED COUMADIN/WARFARIN INR THERAPY RANGESSTANDARD DOSE: 2.0 - 3.0 Inclu rosanna: PROPHYLAXIS for venous thrombosis, systemic embolization; TREATMENT for fran ous thrombosis and/or pulmonary embolus.HIGH RISK: Target INR is 2.5-3.5 for pat ients with mechanical heart valves.CBC W/PLT COUNT & AUTO [id number] 06:35:00* Test Item Value Reference Range Comments WHITE BLOOD CELL COUNT (BEAKER) (test bxvu=002) 8.6 K/ L 3.5-10.5 RED BLOOD CELL COUNT (BEAKER) (test cucu=132) 4.69 M/ L 4.63-6.08 HEMOGLOBIN (BEAKER) (test thos=314) 13.4 GM/DL 13.7-17.5 HEMATOCRIT (BEAKER) (test wuvc=653) 40.9 % 40.1-51.0 MEAN CORPUSCULAR VOLUME (BEAKER) (test kezc=135) 87.2 fL 79.0-92.2 MEAN CORPUSCULAR HEMOGLOBIN (BEAKER) (test ilyi=994) 28.6 pg 25.7-32.2 MEAN CORPUSCULAR HEMOGLOBIN CONC (BEAKER) (test oeku=797) 32.8 GM/DL 32.3-36.5 RED CELL DISTRIBUTION WIDTH (BEAKER) (test mvdu=114) 12.7 % 11.6-14.4 PLATELET COUNT (BEAKER) (test iozb=542) 359 K/CU MM 150-450 MEAN PLATELET VOLUME (BEAKER) (test wusr=894) 9.6 fL 9.4-12.4 NUCLEATED RED BLOOD CELLS (BEAKER) (test nbsl=281) 0 /100 WBC 0-0 NEUTROPHILS RELATIVE PERCENT (BEAKER) (test froz=844) 53 % LYMPHOCYTES RELATIVE PERCENT (BEAKER) (test pkny=550) 35 % MONOCYTES RELATIVE PERCENT (BEAKER) (test wwaq=787) 7 % EOSINOPHILS RELATIVE PERCENT (BEAKER) (test ocyo=836) 4 % BASOPHILS RELATIVE PERCENT (BEAKER) (test vcqt=194) 1 % NEUTROPHILS ABSOLUTE COUNT (BEAKER) (test bebg=077) 4.59 K/ L 1.78-5.38 LYMPHOCYTES ABSOLUTE COUNT (BEAKER) (test drjd=582) 3.06 K/ L 1.32-3.57 MONOCYTES ABSOLUTE COUNT (BEAKER) (test wlto=299) 0.61 K/ L 0.30-0.82 EOSINOPHILS ABSOLUTE COUNT (BEAKER) (test rvxt=620) 0.30 K/ L 0.04-0.54 BASOPHILS ABSOLUTE COUNT (BEAKER) (test crrd=418) 0.07 K/ L 0.01-0.08 IMMATURE GRANULOCYTES-RELATIVE PERCENT (BEAKER) (test renv=7471) 0 % 0-1 CT ABDOMEN/PELVIS [place] [address] Patient Name: AASHISH TORRES JR MR #: [id number] : 1985 Age/Sex: 32/M Req #: [id number] Adm Physician: Ordered by: HAYDEN ESQUIVEL HANDLING TECH Report #: [id number] Location: ER Room/Bed: Procedure: [id number] CT/CT ABDOMEN/PELVIS WO Exam Date: 02/03/18 Exam Time: 1150 REPORT STATUS: Signed EXAM: CT Abdomen and Pelvis WITHOUT contrast INDICATION: COMPARISON: None. TECHNIQUE: Abdomen and pelvis were scanned utiliz ing a multidetector helical scanner from the lung base to the pubic symphysis without administration of IV contrast. Absence of intravenous contrast decreas es sensitivity for detection of focal lesions and vascular pathology. Coronal and sagittal reformations were obtained. Routine protocol was performed. IV CONTRAST: None ORAL CONTRAST: Water COMPLICATIONS: None RADIATION DOSE: Total DLP: 799.5 mGy*cm Estimated effec tive dose: (DLP x 0.015 x size factor) mSv CTDIvol has been reviewed. It is below the limits set by the Radiation Protocol Committee (RPC). FINDIN GS: LINES and TUBES: None. LOWER THORAX: Unremarkable HEPATOBILI BELINDA: Low attenuating right hepatic 0.6 cm lesion is too small to characterize but likely a cyst. No biliary ductal dilation. GALLBLADDER: No radio- opaque stones or sludge. No wall thickening. SPLEEN: No splenomegaly. PANCREAS: No focal masses or ductal dilatation. ADRENALS: No adrenal no dules KIDNEYS/URETERS: Mild left hydronephrosis related to a 1.1 x 0.7 x 0.8 cm stone at the ureterovesicular junction. No cystic or solid mass lesi ons. Multiple nonobstructing stones measure up to 3 mm stones in the right ki dney and 5 mm in the left kidney. GI TRACT: No abnormal distention, wall thickening, or evidence of bowel obstruction. Submucosal fat stomach, duodenu m, and right colon. Appendix is normal. PELVIC ORGANS/BLADDER: Unremarka ble. LYMPH NODES: No lymphadenopathy. VESSELS: Unremarkable. FERNANDO TONEUM / RETROPERITONEUM: No free air or fluid. A 1.5 cm partially calcified s tructure in the pelvis likely represents a torsed epiploic appendage. 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 SOFT TI SSUES: Small fat-containing indirect right inguinal hernia. IMP RESSION: Left ureteropelvic junction 1.1 x 0.7 x 0.8 cm stone results in mild left hydronephrosis. Signed by: DR. Laron Mcdonald MD on 02/03/2018 12 :47 PM Dictated By: LARON MCDONALD MD 124 Transcribed By: MELL on 02/03/18 1247 COPY TO : HAYDEN ESQUIVEL NP
== END 2019-03-30 06:25 | disposition left against medical advice (07) ==
LOC: ER 05:27
DX: H57.11 Ocular pain, right eye (principal); H00.11 Chalazion right upper eyelid